=== PATIENT | female | born 1965 | race Hispanic/Latino ===

== ENCOUNTER 2021-02-26 18:07 | Emergency (ER) | payer OTHER, SELFPAY ==
[2021-02-26 18:08] VITALS: BP 134/86; PULSE 101; RESP 16; TEMP 36.5; O2SAT 98; BMI 51.2
--- NOTE | 2021-02-26 20:38 | EX.ED.UPPERE ---
HPI History of Present Illness Chief Complaint: Laceration Detail of Chief Complaint: Proximal left thumb Informant: patient and other Occured/Mechanism Mechanism/Context: Yes injury Onset/Context/Timing Onset: Today and Hours Context: Sudden Onset Timing: Continuous Quality of Pain: Sharp Current Severity: Mild Maximum Severity: Mild Associated Symptoms Associated Symptoms: Negative for Parasthesia, Weakness and Loss of Funtion Narrative Narrative: 55-year-old speaking female without any significant past medical history. She is right-hand dominant. Tonight at work she was using a knife and ice and lacerated the proximal aspect of the left thumb. She denies any other complaints. States her last tetanus shot was within the last 2 years. 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 Tetanus Immunization: <5 years Prior similar symptoms: No Recent Illness/Hospitalization: No PFSH PFSH Home Medications cephalexin 500 mg PO Q6H 5 Days #20 cap 02/26/21 [Rx Last Taken Unknown] Allergy/AdvReac Type Severity Reaction Status Date / Time No Known Allergies Allergy Verified 02/26/21 18:10 Social History Smoking Status: Never smoker ROS ROS ED ROS Narrative Patient denies any recent illness. Review of Systems ROS Unobtainable: Denies due to encephalopathy Constitutional Constitutional ED: Denies frequent falls Eyes Eyes: Denies change in vision ENT ENT ED: Denies ear pain or sore throat Cardiovascular Cardiovascular: Denies chest pain Respiratory/Chest Respiratory/Chest: Denies dyspnea Gastrointestinal Gastrointestinal: Denies abdominal pain, diarrhea, nausea or vomiting Genitourinary Genitourinary ED: Denies dysuria Musculoskeletal Musculoskeletal: Denies myalgias Integumentary Denies rash Neurologic Neurologic: Denies headache(s) Psychiatric Psychiatric: Denies depression Endocrine Endocrinology: Denies polyuria Hematologic/Lymphatic Hematologic/Lymphatic: Denies easy bruising Allergic/Immunologic Allergic/Immunologic ED: Denies urticaria EXAM Physical Exam Narrative Exam Narrative: Well-appearing middle-aged female vital signs are stable afebrile. Lungs are clear heart regular rate and rhythm. Left hand dorsum proximal thumb proximal to the metacarpal phalangeal joint there is a horizontal 2 and half centimeter laceration involves the skin and subcu tissue. She has full flexion-extension of the left thumb. She can extend against resistance. She has normal touch sensation and cap refill. Other digits the hand have no injuries and have normal range of motion. Left thumb laceration was locally anesthetized with lidocaine. Cleaned with Shur-Clens washed with saline and irrigated with saline. The wound was explored and involve the skin and subcu tissue also involved partial laceration of the extensor tendon of the thumb. However patient still remained to have full range of motion it was not a complete tendon laceration. I repaired the skin using five 5-0 Ethilon simple erupted sutures. Proper hemostasis wound closure is obtained. Patient tolerated procedure well. She will be instructed on plastic surgery follow-up with Dr. Varela for further evaluation of the thumb and decision if they need to go in and do any repair of the extensor tendon. She will be placed on oral antibiotics for 5 days. Const Vital Signs: 02/26/21 18:08 Temperature 97.7 F L Temperature Source Temporal Pulse Rate 101 H Respiratory Rate 16 Blood Pressure 134/86 H Blood Pressure Mean 102 Pulse Ox 98 Oxygen Delivery Method Room Air Positive well nourished, well developed and obese; Negative for unkempt General Appearance ED: well developed and NAD; Negative for unkempt Nutritional Appearance: obese HEENT Reports moist mucous membranes normocephalic and atraumatic; Negative for trauma or tenderness Eyes PERRL and EOMs intact bilaterally Neck full ROM and supple General: Negative for tenderness Chest Wall inspection of chest normal and palpation of chest normal Resp normal respiratory effort and clear to auscultation bilaterally Cardio regular rate, regular rhythm, S1 normal heart sound, S2 normal heart sound and no murmurs GI non-tender, non-distended and no masses Auscultation: normoactive bowel sounds Palpation: soft; Negative for tender or guarding Back/Spine no CVA tenderness Cervical Spine: Negative for cervical spine tenderness Thoracic Spine / Upper Back: Negative for thoracic spinal tenderness Extremity normal to inspection Extremity Narrative: 2 to 3 cm laceration proximal left thumb on the dorsum proximal to the MCP. Involves the skin and subcu tissue. There does appear to be involvement of the flexor tendon sheath and the flexor tendon itself is a partial laceration. Patient does have full flexion extension against resistance. Touch sensation and cap refill. There is no foreign body noted. Neuro oriented x3 and moves all extremities Sensorium / Orientation: alert, oriented to person, oriented to place and oriented to time; Negative for lethargic or stuporous Motor Exam: strength 5/5 throughout Psych mental status grossly normal Appearance: Negative for unkempt Skin Lesions: no lesions Rashes: no rashes MDM MDM MDM Narrative Medical decision making narrative: Patient is a Worker's Comp. left thumb laceration. I repaired the skin. There is involvement of the left thumb extensor tendon sheath and tendon itself. Is not a complete laceration. She does have full range of motion. The laceration involves 50% of the tendon sheath. She will be referred out to plastic surgery for follow-up for further evaluation and decision whether the extensor tendon sheath needs to be repaired. She will be placed on Keflex for 5 days. Ice and elevate. Wound care. Motrin and Tylenol for pain. Procedures Lacerations left thumb: Length: 1.18 in Depth: Tendon Shape: Linear Prep: Sterile Conditions and Shure-Clens Laceration repair: Irrigated, Lidocaine and Local Number of Sutures/[place]: 5 Suture Information: Ethilon and 5-0 Comment: Laceration dorsum left thumb proximal to the MCP. Involves the skin, subcu tissue tendon sheath and extensor tendon of the thumb. This will need follow-up with hand. History of Discharge Plan Triage Chief Complaint: Laceration ED Provider: Guido Collins Dx/Rx/DC Orders Clinical Impression: Laceration of left hand involving extensor tendon Instructions: ED Laceration, Hand: All Closures, ED Tendon Laceration Prescriptions: New cephalexin 500 mg capsule 500 mg PO Q6H 5 Days Qty: 20 RF: 0 Primary Care Provider: Care Physician,No Primary Referrals: Ashish Varela MD [STAFF PHYSICIAN] - 3-5 Days Activity Restrictions/Additional Instructions: Keep the area clean and dry you may get it wet but it needs to be dried off. No soaking in water. You also have a laceration of the tendon underneath the skin. This will need further evaluation. It may need further repair. Keflex which is an antibiotic 1 pill 4 times a day for the next 5 days to prevent any infection. If you notice any possible, redness fever or streaks return. Ice and elevate to decrease swelling. Tylenol Motrin for pain. Patient Follow-up with Dr. Varela for further evaluation of extensor tendon injury. Print Language: [place]ian Disposition Disposition: Home, Self Care
== END 2021-02-26 21:19 | disposition home or self-care (01) ==
LOC: ED 20:57
PROVIDERS: Emergency Provider Emergency Medicine
DX: S61.012A Laceration without foreign body of left thumb without damage to nail, initial encounter (principal); S66.222A Laceration of extensor muscle, fascia and tendon of left thumb at wrist and hand level, initial encounter; W26.0XXA Contact with knife, initial encounter; Y93.9 Activity, unspecified; Y92.9 Unspecified place or not applicable; Y99.0 Civilian activity done for income or pay; E66.9 Obesity, unspecified; Z68.43 Body mass index [BMI] 50.0-59.9, adult
CPT/HCPCS: 12002; 99282